=== PATIENT | male | born 1990 | race Caucasian/White ===

== ENCOUNTER 2021-10-08 16:16 | Emergency (ER) | payer SELFPAY ==
[~2021-10-08] VITALS: Ht 165.1 cm; Wt 74.8 kg
--- NOTE | 2021-10-08 16:16 | NUR ---
PT BHAVANI, NABIL, VIA GURNEY TO BED 10.
[2021-10-08] MEDS ORDERED: NALOXONE PFS 2 MG/2 ML SYR ONE (16:21)
[2021-10-08] MEDS ORDERED: NALOXONE PFS 2 MG/2 ML SYR IVP ONE ×2 (16:25→16:30)
[2021-10-08 16:55] VITALS: BP 124/70
--- NOTE | 2021-10-08 16:57 | NUR ---
PT BIB [facility] 182 C/C OVERDOSE. PT ALTERED, PINPOINT PUPILS. BREATHING UNLABORED. STACH ON MONITOR. O2 SATURATION 98%. PT GCS 10 NOT FOLLOWING COMMANDS. GIVEN NARCAN 4MG IVP. PT REMAINS ALTERED AND UNRESPONSIVE. AIRWAY INTACT
--- NOTE | 2021-10-08 18:58 | NUR ---
PT REMAINS ALTERED, DOES NOT RESPOND TO PAINFUL STIMULI. MAINTAING AIRWAY. STACH ON MONITOR.
--- NOTE | 2021-10-08 19:19 | NUR ---
REPORT RECIEVED FROM ROBBI DUNN
--- NOTE | 2021-10-08 23:17 | NUR ---
PT REMAINS SUPINE AND UNCONSIOUS. PT IS NOW ROLLING IN HIS SLEEP. PT RESTING COMFORTABLY.
--- NOTE | 2021-10-08 23:22 | NUR ---
ERMD AT BEDSIDE EXAMINING PT. PT UNABLE TO AROUSE.
[2021-10-08] MEDS ORDERED: NACL 0.9% 1,000 ML IV ONE (23:25)
--- NOTE | 2021-10-08 23:30 | NUR ---
PT CLEANED, CHANGED, AND REPOSITIONED IN BED. PT IS SLEEPY BUT ABLE TO RESPOND TO SOME QUESTIONING.
--- NOTE | 2021-10-08 23:40 | NUR ---
NURSING TECHN AT BEDSIDE
[2021-10-08 23:57] LABS: BASOPHILS % (AUTO) 0.2 % (0.0-2.0); EOSINOPHILS # (AUTO) 0.1 K/uL (0-0.4); EOSINOPHILS % (AUTO) 0.9 % (0.0-4.0); HEMATOCRIT 38.7 % (36-52); LYMPHOCYTES # (AUTO) 1.5 K/uL (2.0-11.5); LYMPHOCYTES % (AUTO) 14.3 % (20.5-51.1); MEAN CORPUSCULAR HEMOGLOBIN 30 pg (27-31); MEAN CORPUSCULAR HGB CONC 34 g/dL (33-37); MEAN CORPUSCULAR VOLUME 88.9 fL (80-94); MONOCYTES # (AUTO) 0.5 K/uL (0.8-1.0); MONOCYTES % (AUTO) 4.9 % (1.7-9.3); NEUTROPHILS # (AUTO) 8.2 K/uL (1.8-7.7); NEUTROPHILS % (AUTO) 79.7 % (42.2-75.2); PLATELET COUNT (AUTO) 256 K/uL (140-450); RED BLOOD CELL COUNT(AUTO) 4.35 MIL/uL (4.20-6.10); RED CELL DISTRIBUTION WIDTH 13.2 % (11.6-13.7); WHITE BLOOD COUNT (AUTO) 10.2 K/uL (4.5-11.0)
[2021-10-09 00:29] LABS: ALBUMIN 3.8 g/dL (3.4-5.0); ANION GAP 10.8 (8-16); ASPARTATE AMINOTRANSFERASE 22 U/L (15-37); CARBON DIOXIDE 28.2 mmol/L (21-32); CHLORIDE 104 mmol/L (98-107); CREATININE 0.8 mg/dL (0.6-1.3); GFR ARICAN-AMERICAN 158 mL/min (>90); GLUCOSE 126 mg/dL (74-106); SODIUM SERUM 139 mmol/L (136-145); TOTAL BILIRUBIN 0.4 mg/dL (0.0-1.0); UREA NITROGEN, BLOOD 13 mg/dL (7-18)
[2021-10-09 00:35] LABS: SALICYLATE < 2.8 mg/dL (2.8-20.0)
[2021-10-09 01:03] LABS: BARBITURATE, URINE NEGATIVE ng/ml (NEG <=200); BENZODIAZEPINE, URINE NEGATIVE ng/mL (NEG <=200); CANNABINOID, URINE NEGATIVE ng/mL (NEG <=50); COCAINE, URINE NEGATIVE ng/mL (NEG <=300); OPIATE, URINE NEGATIVE ng/mL (NEG <=2000); PHENCYCLIDINE SCREEN,URINE NEGATIVE ng/mL (NEG <=25)
--- NOTE | 2021-10-09 06:52 | NUR ---
IV removed, catheter intact and site benign. Applied folded 4x4 gauze and tape to stop bleeding.
[2021-10-09 07:00] VITALS: BP 127/80
--- NOTE | 2021-10-09 07:00 | NUR ---
Patient discharged with v/s stable. Written and verbal after care instructions given and explained. Patient alert, oriented and verbalized understanding of instructions. Ambulatory with steady gait. All questions addressed prior to discharge. ID band removed. Patient advised to follow up with PMD. ROpportunity to ask questions provided and answered.
== END 2021-10-09 07:00 | disposition home or self-care (01) ==
LOC: EDBD 16:16 → MED 16:16
DX: R55 Syncope and collapse (principal); F19.10 Other psychoactive substance abuse, uncomplicated; F15.90 Other stimulant use, unspecified, uncomplicated
CPT/HCPCS: 36415; 80053; 80305; 85025; 93005; 96361; 96374; 96376; 99284; G0480; G0482; J2310; J7030